=== PATIENT | male | born 1975 | race Caucasian/White ===

== ENCOUNTER 2017-02-22 07:23 | Inpatient (IN) | payer OTHER ==
[~2017-02-22] VITALS: Ht 182.9 cm; Wt 88.2 kg
[2017-02-22] VITALS (8 sets, daily range): BP systolic 102–131; BP diastolic 58–81
[2017-02-22] MEDS ORDERED: IV NORMAL SALINE 1000ML BAG 1,000 ML IV SCH (07:57)
[2017-02-22] MEDS ORDERED: fentaNYL PF VIAL 100 MCG/2 ML VIAL IV PRN (08:00)
[2017-02-22 08:27] LABS: CALCIUM 9.1 mg/dL (8.5-10.1); GFR 82.8; POTASSIUM 4.1 mmol/L (3.5-5.1)
[2017-02-22] MEDS ORDERED: IOHEXOL 300 MG/ML 75 ML VIAL IV ONE (08:30)
[2017-02-22] MEDS ORDERED: IOHEXOL 240 MG/ML 50ML VIAL. PO ONE (08:30)
[2017-02-22 08:36] LABS: BASO % 0 % (0-3); EOS % 2 % (0-3); HEMATOCRIT 43.4 % (39.0-53.0); HEMOGLOBIN 15.4 g/dL (13.0-17.5); LYMPH # 1.3 x10^3/uL (1.0-4.8); LYMPH % 12 % (24-48); MEAN CORPUSCULAR HEMOGLOBIN 33 pg (25-35); MEAN CORPUSCULAR HGB CONC 35 g/dL (31-37); MEAN CORPUSCULAR VOLUME 94 fL (79-100); MONO % 10 % (0-9); NEUT % 76 % (31-73); PLATELET COUNT 194 x10^3/uL (140-400); RED BLOOD COUNT 4.62 x10^6/uL (4.30-5.70); RED CELL DISTRIBUTION WIDTH 12.8 % (11.5-14.5); WHITE BLOOD COUNT 10.6 x10^3/uL (4.0-11.0)
[2017-02-22 08:36] LABS: BILIRUBIN,URINE NEGATIVE (NEG); GLUCOSE,URINE NEGATIVE (NEG); NITRITE,URINE NEGATIVE (NEG); PH,URINE 7.5; PROTEIN,URINE NEGATIVE (NEG-TRACE); UROBILINOGEN,URINE 0.2 mg/dL (0.2 mg/dL)
[2017-02-22 08:42] LABS: ALBUMIN 3.9 g/dL (3.4-5.0); ALBUMIN/GLOBULIN RATIO 1.2 (1.0-1.7); TOTAL PROTEIN 7.2 g/dL (6.4-8.2)
[2017-02-22 08:50] LABS: BACTERIA,URINE 0 /HPF (0-FEW); SQUAMOUS EPITHELIAL CELL,UR OCC /LPF; WBC,URINE 0 /HPF (0-4)
--- NOTE | 2017-02-22 10:00 | PHYS DOC ---
Past Medical History Past Medical History: No Pertinent History Past Surgical History: Other Additional Past Surgical Histo: dental Alcohol Use: Heavy Additional Information: pt. states approx 5 drinks daily Drug Use: None Adult General Chief Complaint Chief Complaint: ABDOMINAL PAIN HPI HPI Patient is a 42 year old male who presents complaining of right-sided abdominal pain which started last night at about 5 PM. The patient had taken his child to practice, he didn't feel well, had some more central abdominal pain and felt "dizzy, unbalanced". He went back to the vehicle and took a little nap, didn't really feel better. He continued to have abdominal pain which kept him up all night. He denies nausea or vomiting. said she thought he was nauseated but he said really it was more from dizziness. He had a bowel movement this morning which was normal and did not change the pain. The pain started around the umbilicus and is now more in the right lower quadrant but also somewhat in the left lower quadrant. He's never had this pain before. Denies history of abdominal surgery. The patient is in good health, no primary care physician, no medications. Review of Systems Review of Systems Constitutional: Denies fever or chills [] Eyes: Denies change in visual acuity, redness, or eye pain [] HENT: Denies nasal congestion or sore throat [] Respiratory: Denies cough or shortness of breath [] Cardiovascular: Denies chest pain GI: As in history of present illness : Denies dysuria or hematuria [] Musculoskeletal: Denies back pain or joint pain [] Integument: Denies rash or skin lesions [] Neurologic: Denies headache, focal weakness or sensory changes [] Current Medications Current Medications Current Medications Medications (Trade) Dose Ordered Sig/Watson Start Time Stop Time Status Last Admin Dose Admin Fentanyl Citrate 50 mcg 50 mcg PRN Q15MIN PRN 02/22/17 08:00 02/23/17 07:59 Iohexol (Omnipaque 240 Mg/ml) 30 ml 1X ONCE 02/22/17 08:30 02/22/17 08:31 DC 02/22/17 09:28 30 ML Iohexol (Omnipaque 300 Mg/ml) 75 ml 1X ONCE 02/22/17 08:30 02/22/17 08:31 DC 02/22/17 09:28 75 ML Sodium Chloride (Iv Sodium Chloride 0.9% 1000ml Bag) 1,000 ml @ 1,000 mls/hr Q1H 02/22/17 07:57 02/22/17 08:56 DC 02/22/17 08:21 1,000 MLS/HR Allergies Allergies Allergies Coded Allergies Type Severity Reaction Last Updated Verified No Known Drug Allergies 02/22/17 No Physical Exam Physical Exam Constitutional: Well developed, well nourished, no acute distress, non-toxic appearance. Alert, mentating normally, states it does hurt to move about on the cart but he does not seem to have difficulty doing that. HENT: Normocephalic, atraumatic, bilateral external ears normal, oropharynx moist, no oral exudates, nose normal. [] Eyes: conjunctiva normal, no discharge. [] Neck: Normal range of motion, no stridor. [] Cardiovascular:Heart rate regular rhythm, no murmur [] Lungs & Thorax: Bilateral breath sounds clear to auscultation [] Abdomen: Bowel sounds quiet. No bruit. Nondistended. Positive tenderness at McBurney's point with equivocal guarding. Some tenderness of the left lower quadrant, also left lower quadrant palpation elicits right lower quadrant pain. No upper abdominal tenderness. Skin: Warm, dry, no erythema, no rash. [] Extremities: No tenderness, no cyanosis, no clubbing, ROM intact, no edema. [] Neurologic: Alert and oriented X 3, normal motor function, normal sensory function, no focal deficits noted. [] Current Patient Data Vital Signs Vital Signs Date Time Temp Pulse Resp B/P Pulse Ox O2 Delivery O2 Flow Rate FiO2 02/22/17 07:35 98.7 76 16 131/78 98 Room Air 98.7 Lab Values Laboratory Tests Test 02/22/17 08:11 02/22/17 08:22 White Blood Count 10.6x10^3/uL (4.0-11.0) Red Blood Count 4.62x10^6/uL (4.30-5.70) Hemoglobin 15.4g/dL (13.0-17.5) Hematocrit 43.4% (39.0-53.0) Mean Corpuscular Volume 94fL (79-100) Mean Corpuscular Hemoglobin 33pg (25-35) Mean Corpuscular Hemoglobin Concent 35g/dL (31-37) Red Cell Distribution Width 12.8% (11.5-14.5) Platelet Count 194x10^3/uL (140-400) Neutrophils (%) (Auto) 76% (31-73) H Lymphocytes (%) (Auto) 12% (24-48) L Monocytes (%) (Auto) 10% (0-9) H Eosinophils (%) (Auto) 2% (0-3) Basophils (%) (Auto) 0% (0-3) Neutrophils # (Auto) 8.1x10^3uL (1.8-7.7) H Lymphocytes # (Auto) 1.3x10^3/uL (1.0-4.8) Monocytes # (Auto) 1.1x10^3/uL (0.0-1.1) Eosinophils # (Auto) 0.2x10^3/uL (0.0-0.7) Basophils # (Auto) 0.0x10^3/uL (0.0-0.2) Sodium Level 140mmol/L (136-145) Potassium Level 4.1mmol/L (3.5-5.1) Chloride Level 103mmol/L (98-107) Carbon Dioxide Level 29mmol/L (21-32) Anion Gap 8 (6-14) Blood Urea Nitrogen 13mg/dL (8-26) Creatinine 1.0mg/dL (0.7-1.3) Estimated GFR (Cockcroft-Gault) 82.8 BUN/Creatinine Ratio 13 (6-20) Glucose Level 106mg/dL (70-99) H Calcium Level 9.1mg/dL (8.5-10.1) Total Bilirubin 3.0mg/dL (0.2-1.0) H Aspartate Amino Transferase (AST) 21U/L (15-37) Alanine Aminotransferase (ALT) 47U/L (16-63) Alkaline Phosphatase 64U/L (46-116) Total Protein 7.2g/dL (6.4-8.2) Albumin 3.9g/dL (3.4-5.0) Albumin/Globulin Ratio 1.2 (1.0-1.7) Lipase 142U/L (73-393) Urine Collection Type Unknown Urine Color Yellow Urine Clarity Clear Urine pH 7.5 Urine Specific [place] 1.020 Urine Protein Negativemg/dL (NEG-TRACE) Urine Glucose (UA) Negativemg/dL (NEG) Urine Ketones (Stick) Negativemg/dL (NEG) Urine Blood Negative (NEG) Urine Nitrite Negative (NEG) Urine Bilirubin Negative (NEG) Urine Urobilinogen Dipstick 0.2mg/dL (0.2 mg/dL) Urine Leukocyte Esterase Negative (NEG) Urine RBC 1-2/HPF (0-2) Urine WBC 0/HPF (0-4) Urine Squamous Epithelial Cells Occ/LPF Urine Bacteria 0/HPF (0-FEW) Urine Mucus Slight/LPF Laboratory Tests 02/22/17 08:11 Laboratory Tests 02/22/17 08:11 EKG EKG [] Radiology/Procedures Radiology/Procedures CT scan of the abdomen and pelvis with oral and IV contrast read by the radiologist. Consistent with early appendicitis. No other findings noted to explain the symptoms. No abscess. [] Course & Med Decision Making Course & Med Decision Making Pertinent Labs and Imaging studies reviewed. (See chart for details) 42-year-old male in good general health presents with abdominal pain since 5 PM yesterday which has localized to the right lower quadrant, with a history and exam suspicious for appendicitis. CT scan is consistent with early appendicitis. Patient is stable. He was given a liter of IV fluids in the ED. I discussed the case with Dr. Samuel, on-call for general surgery, who also reviewed the CT scan. She will send somebody to see the patient and plans to admit him and take him to the operating room. She said they can give him antibiotics in the operating room. I discussed the plan with the patient and his who are agreeable. I wrote bridge orders. [] Dragon Disclaimer Dragon Disclaimer This electronic medical record was generated, in whole or in part, using a voice recognition dictation system. Departure Departure Impression: Primary Impression: Acute appendicitis Disposition: 09 ADMITTED INPATIENT Admitting Physician: Other Condition: STABLE Referrals: NO PCP (PCP) FIDE VERA MD Feb 22, 2017 10:00
--- NOTE | 2017-02-22 10:03 | RAD ---
Indication right lower quadrant abdominal pain. Axial images of the abdomen and pelvis were obtained. Both IV and oral contrast were administered. 75 cc of Omnipaque 300 was administered intravenously. No prior imaging is available. Preliminary results were discussed with Dr. Holliday just prior to dictating the report. The lung bases are clear. The liver and spleen appear unremarkable. The gallbladder appears grossly normal. Several splenule' s are noted in the left upper quadrant. The pancreas adrenal glands and kidneys appear unremarkable apart from occasional minute bilateral renal calculi.. The appendix is seen in the right lower quadrant. The appendix is slightly increased in diameter, approximately 7 mm. There is slight irregularity at the attachment of the appendix with the cecum. Findings, in the proper clinical setting, could reflect early appendicitis. Significant periappendiceal stranding is not seen. There is no evidence of abscess or rhina rupture. Occasional diverticula are noted associated with the large bowel. Active diverticulitis is not seen. IMPRESSION: Findings, as outlined above, could represent early appendicitis in the proper clinical setting. Clinical correlation advised. PQRS Compliance Statement: One or more of the following individualized dose reduction techniques were utilized for this examination: 1. Automated exposure control 2. Adjustment of the mA and/or kV according to patient size 3. Use of iterative reconstruction technique
--- NOTE | 2017-02-22 10:32 | PDOC1 ---
YUMI BARROW FISH FILLETER 02/22/17 1032: History and Physical Date of Admission Date of Admission DATE: 02/22/17 TIME: 10:28 Identification/Chief Complaint Chief Complaint abdominal pain Problems: Source Source: Chart review, Patient History of Present Illness History of Present Illness Acute onset abdominal discomfort yesterday. Pain was periumbilical, migrated to RLQ. Pain was been constant, no alleviating factors. No similar symptoms in past. No associated nausea or emesis. Past Medical History Past Medical History no pertinent hx Past Surgical History Past Surgical History: No pertinent history Family History Family History: Other (noncontributory to current illness ) Social History Smoke: No ALCOHOL: heavy (5 drinks daily, vodka) Drugs: None Current Problem List Problem List Problems Medical Problems: (1) Acute appendicitis Status: Acute Problems: Current Medications Current Medications Current Medications Fentanyl Citrate 50 mcg 50 mcg PRN Q15MIN PRN IV PAIN GREATER THAN 3/10; Start 02/22/17 at 08:00; Stop 02/23/17 at 07:59 Sodium Chloride (Iv Sodium Chloride 0.9% 1000ml Bag) 1,000 ml @ 1,000 mls/hr Q1H IV Last administered on 02/22/17 08:21; Start 02/22/17 at 07:57; Stop at 08:56; Status DC Iohexol (Omnipaque 240 Mg/ml) 30 ml 1X ONCE PO Last administered on 02/22/17 09:28; Start 02/22/17 at 08:30; Stop 02/22/17 at 08:31; Status DC Iohexol (Omnipaque 300 Mg/ml) 75 ml 1X ONCE IV Last administered on 02/22/17 09:28; Start 02/22/17 at 08:30; Stop 02/22/17 at 08:31; Status DC Allergies Allergies: Coded Allergies: No Known Drug Allergies (Unverified , 02/22/17) ROS General: No: Chills, Other (fevers) PSYCHOLOGICAL ROS: No: Anxiety, Depression Eyes: No Blurry vision, No Double vision HEENT: No: Heacaches, Hearing change Hematological and Lymphatic: No: Bleeding Problems, Blood Clots Respiratory: No: Cough, Shortness of breath Cardiovascular: yes Other (epigastric burning at times ), No Chest Pain, No Palpitations Gastrointestinal: Yes Other (see hpi) Genitourinary: No Dysuria, No Hematuria Musculoskeletal: Yes Joint Pain (back), No Joint Swelling Neurological: No Confusion, No Numbness/Tingling Skin: No Pruritus, No Rash Physical Exam General: Alert, Oriented X3, Cooperative, No acute distress HEENT: PERRLA Lungs: Clear to auscultation, Normal air movement Cardiovascular: S1, S2 Abdomen: Soft, Other (mild LLQ ttp, greater TTP to RLQ, no rebound or guarding ) Extremities: No clubbing, No cyanosis Skin: No rashes, No breakdown Neuro: Normal gait, Normal speech Psych/Mental Status: Mental status NL, Mood NL Vitals Vitals Vital Signs Date Time Temp Pulse Resp B/P Pulse Ox O2 Delivery O2 Flow Rate FiO2 02/22/17 10:14 59 16 131/83 100 Room Air 02/22/17 07:35 98.7 98.7 Labs Labs Laboratory Tests Test 02/22/17 08:11 02/22/17 08:22 White Blood Count 10.6x10^3/uL (4.0-11.0) Red Blood Count 4.62x10^6/uL (4.30-5.70) Hemoglobin 15.4g/dL (13.0-17.5) Hematocrit 43.4% (39.0-53.0) Mean Corpuscular Volume 94fL (79-100) Mean Corpuscular Hemoglobin 33pg (25-35) Mean Corpuscular Hemoglobin Concent 35g/dL (31-37) Red Cell Distribution Width 12.8% (11.5-14.5) Platelet Count 194x10^3/uL (140-400) Neutrophils (%) (Auto) 76% (31-73) Lymphocytes (%) (Auto) 12% (24-48) Monocytes (%) (Auto) 10% (0-9) Eosinophils (%) (Auto) 2% (0-3) Basophils (%) (Auto) 0% (0-3) Neutrophils # (Auto) 8.1x10^3uL (1.8-7.7) Lymphocytes # (Auto) 1.3x10^3/uL (1.0-4.8) Monocytes # (Auto) 1.1x10^3/uL (0.0-1.1) Eosinophils # (Auto) 0.2x10^3/uL (0.0-0.7) Basophils # (Auto) 0.0x10^3/uL (0.0-0.2) Sodium Level 140mmol/L (136-145) Potassium Level 4.1mmol/L (3.5-5.1) Chloride Level 103mmol/L (98-107) Carbon Dioxide Level 29mmol/L (21-32) Anion Gap 8 (6-14) Blood Urea Nitrogen 13mg/dL (8-26) Creatinine 1.0mg/dL (0.7-1.3) Estimated GFR (Cockcroft-Gault) 82.8 BUN/Creatinine Ratio 13 (6-20) Glucose Level 106mg/dL (70-99) Calcium Level 9.1mg/dL (8.5-10.1) Total Bilirubin 3.0mg/dL (0.2-1.0) Aspartate Amino Transf (AST/SGOT) 21U/L (15-37) Alanine Aminotransferase (ALT/SGPT) 47U/L (16-63) Alkaline Phosphatase 64U/L (46-116) Total Protein 7.2g/dL (6.4-8.2) Albumin 3.9g/dL (3.4-5.0) Albumin/Globulin Ratio 1.2 (1.0-1.7) Lipase 142U/L (73-393) Urine Collection Type Unknown Urine Color Yellow Urine Clarity Clear Urine pH 7.5 Urine Specific [place] 1.020 Urine Protein Negativemg/dL (NEG-TRACE) Urine Glucose (UA) Negativemg/dL (NEG) Urine Ketones (Stick) Negativemg/dL (NEG) Urine Blood Negative (NEG) Urine Nitrite Negative (NEG) Urine Bilirubin Negative (NEG) Urine Urobilinogen Dipstick 0.2mg/dL (0.2 mg/dL) Urine Leukocyte Esterase Negative (NEG) Urine RBC 1-2/HPF (0-2) Urine WBC 0/HPF (0-4) Urine Squamous Epithelial Cells Occ/LPF Urine Bacteria 0/HPF (0-FEW) Urine Mucus Slight/LPF Laboratory Tests Test 02/22/17 08:11 02/22/17 08:22 White Blood Count 10.6x10^3/uL (4.0-11.0) Red Blood Count 4.62x10^6/uL (4.30-5.70) Hemoglobin 15.4g/dL (13.0-17.5) Hematocrit 43.4% (39.0-53.0) Mean Corpuscular Volume 94fL (79-100) Mean Corpuscular Hemoglobin 33pg (25-35) Mean Corpuscular Hemoglobin Concent 35g/dL (31-37) Red Cell Distribution Width 12.8% (11.5-14.5) Platelet Count 194x10^3/uL (140-400) Neutrophils (%) (Auto) 76% (31-73) Lymphocytes (%) (Auto) 12% (24-48) Monocytes (%) (Auto) 10% (0-9) Eosinophils (%) (Auto) 2% (0-3) Basophils (%) (Auto) 0% (0-3) Neutrophils # (Auto) 8.1x10^3uL (1.8-7.7) Lymphocytes # (Auto) 1.3x10^3/uL (1.0-4.8) Monocytes # (Auto) 1.1x10^3/uL (0.0-1.1) Eosinophils # (Auto) 0.2x10^3/uL (0.0-0.7) Basophils # (Auto) 0.0x10^3/uL (0.0-0.2) Sodium Level 140mmol/L (136-145) Potassium Level 4.1mmol/L (3.5-5.1) Chloride Level 103mmol/L (98-107) Carbon Dioxide Level 29mmol/L (21-32) Anion Gap 8 (6-14) Blood Urea Nitrogen 13mg/dL (8-26) Creatinine 1.0mg/dL (0.7-1.3) Estimated GFR (Cockcroft-Gault) 82.8 BUN/Creatinine Ratio 13 (6-20) Glucose Level 106mg/dL (70-99) Calcium Level 9.1mg/dL (8.5-10.1) Total Bilirubin 3.0mg/dL (0.2-1.0) Aspartate Amino Transf (AST/SGOT) 21U/L (15-37) Alanine Aminotransferase (ALT/SGPT) 47U/L (16-63) Alkaline Phosphatase 64U/L (46-116) Total Protein 7.2g/dL (6.4-8.2) Albumin 3.9g/dL (3.4-5.0) Albumin/Globulin Ratio 1.2 (1.0-1.7) Lipase 142U/L (73-393) Urine Collection Type Unknown Urine Color Yellow Urine Clarity Clear Urine pH 7.5 Urine Specific Malone 1.020 Urine Protein Negativemg/dL (NEG-TRACE) Urine Glucose (UA) Negativemg/dL (NEG) Urine Ketones (Stick) Negativemg/dL (NEG) Urine Blood Negative (NEG) Urine Nitrite Negative (NEG) Urine Bilirubin Negative (NEG) Urine Urobilinogen Dipstick 0.2mg/dL (0.2 mg/dL) Urine Leukocyte Esterase Negative (NEG) Urine RBC 1-2/HPF (0-2) Urine WBC 0/HPF (0-4) Urine Squamous Epithelial Cells Occ/LPF Urine Bacteria 0/HPF (0-FEW) Urine Mucus Slight/LPF Images Images CT reviewed VTE Prophylaxis Ordered VTE Prophylaxis Devices: Yes VTE Pharmacological Prophylaxi: Contraindicated Assessment/Plan Assessment/Plan Acute early appendicitis alcohol abuse plan lap appy today PARVIN CATES MD 02/22/17 1348: History and Physical Allergies Allergies: Coded Allergies: No Known Drug Allergies (Unverified , 02/22/17) VTE Prophylaxis Ordered VTE Prophylaxis Devices: Yes VTE Pharmacological Prophylaxi: No Assessment/Plan Assessment/Plan addendum i saw and examined him. i repeated phillips parts of his h and p. yest began having periumb pain, then it migrated to include his RLQ. pain is sharp, constant, not improving, worse with movement. no one else he knows has been sick recently with gi sx. sh: drinks 5 drinks per day FH alcoholism afeb vss does not appear toxic abd soft nd focally tender in RLQ with rebound. ct reviewed labs reviewed acute appendicitis. to or for lap appy, poss open. risks of bleeding, infection, finding normal appendix/other pathology requiring treatment, injury to intra-abd structures, need to convert to open, symptoms of etoh withdrawal were d/w him. questions answered and he desires to proceed. chronic, daily etoh use. he is interested in d/w social work local resources to help him stop drinking. he would also like to establish a pcp. will place sw consult to help him with both of these needs. YUMI BARROW FISH FILLETER Feb 22, 2017 10:32 PARVIN CATES MD Feb 22, 2017 13:48
--- NOTE | 2017-02-22 10:50 | ACF ---
Admit Criteria Forms Admit Criteria Forms Admit Criteria Forms ABDOMINAL PAIN Clinical Indications for Admission to Inpatient Care (Place 'X' for any and all applicable criteria): Admission is indicated for ANY ONE of the following(1)(2)(3)(4)(5): [X]I. Inpatient admission required rather than observation care (Also use Abdominal Pain: Observation Care, as appropriate) because of ANY ONE of the following: [ ]a) Severe pain requiring acute inpatient management [X]b) Identification of etiology/finding that requires inpatient care (eg, aortic dissection, free air) [ ]c) Absent bowel sounds with complete ileus(6) [ ]d) Suspected toxic megacolon [ ]e) Severe electrolyte abnormalities requiring inpatient care [ ]f) High fever or infection requiring inpatient admission as indicated by ANY ONE of following(7)(8): [ ] i) Appropriate outpatient or observational care antimicrobial treatment unavailable, not effective, or not feasible [ ] ii) Documented bacteremia [ ] iii) Temperature > 104.9 degrees F (oral) [ ] iv) T >103.1 F (oral) or < 96.8 F(rectal) that does not respond to all emergency treatment measures [ ]g) Signs of intestinal obstruction [B] [ ]h) Hemodynamic instability [ ]i) IV fluid to replace significant ongoing losses (greater than 3 L/m2 per day) (12)(13) [ ]j) Percutaneous or open drainage (eg, abscess, biliary tract ) procedures [ ]k) Parenteral nutrition regimen that must be implemented on inpatient basis [ ]l) Other condition,treatment or monitoring requiring inpatient admission. [ ]II. Peritoneal signs present [ ]III. Surgery needed that cannot be performed on an ambulatory basis. [ ]IV. Evaluation requires patient to not eat or drink for extended period ( eg, more than 24 hours). [ ]V. Contraindications and/or Inappropriate clinical situations for Observational Care in patients with abdominal pain, when ANY ONE of the following is required: [ ]a) Thorough evaluation is required to prevent catastrophic events due to delays in diagnosing (e.g.Mesenteric ischemia) 1,3 [ ]b) Patient with severe pathology or with chronic symptoms unlikely to improve in the ED stay (3) [ ]. General contraindications and/or Inappropriate clinical situations for Observational Care in patients with abdominal pain, when ANY ONE of the following is required: [ ]a) Prediction of prolongation of LOS based on ANY ONE of the following may be considered as a contraindication for observational care 2, 3, 4, 5, 6, 7, 8, 9, 10, 11 [ ]i) Age > 65 yrs. [ ]ii) Patient arriving by ambulance [ ]iii) Patient with high acuity [ ]iv) Patient requiring vital sign monitoring [ ]v) Patient on IV medication [ ]b) Systolic blood pressures 180mmHg 3,12 [ ]c) Patient with altered mental status including delirium and other alteration of consciousness, (3) [ ]d) Patient whose discharge disposition will be to a penitentiary home or rehabilitation home should not be managed in Emergency Department Observation Unit. CMS rule requires 3 days hospital stay before such placement.3,13 [ ]e) Patient with failure to thrive due to broad array of etiologies 3,16,17 [ ]f) Inability to ambulate 3,14 Extended stay beyond goal length of stay may be needed for(2)(3): [ ]a) Persistent abdominal pain with suspected intra-abdominal process [ ]b) Diagnosed condition requiring continued stay (e.g., pancreatitis, complicated diverticulitis) [ ]c) Surgery (e.g., colectomy) The original [employer] content created by [employer] has been revised. The portions of the content which have been revised are identified through the use of italic text or in bold, and [email or web address] has neither reviewed nor approved the modified material.All other unmodified content is copyright [employer]. Please see references footnoted in the original [employer] edition 2016 HUBER NICHOLSON Feb 22, 2017 10:50
[2017-02-22] MEDS ORDERED: SURGICEL HEMOSTAT 4X8 EACH. ONE (13:41)
[2017-02-22] MEDS ORDERED: BUPIVACAINE-EPI 0.5%-1:200000 50 ML VIAL. ONE (13:41)
[2017-02-22] MEDS ORDERED: DESFLURANE 61 TO 120 MINUTES IH ONE (13:43)
[2017-02-22] MEDS ORDERED: fentaNYL PF VIAL 100 MCG/2 ML VIAL ONE ×2 (13:44→14:39)
[2017-02-22] MEDS ORDERED: MIDAZOLAM HCL/PF 2 MG/2 ML VIAL. ONE (13:44)
[2017-02-22] MEDS ORDERED: NEOSTIGMINE METHYLSULFATE 5 MG/5 ML SYRINGE. ONE (13:45)
[2017-02-22] MEDS ORDERED: ROCURONIUM 50 MG/5 ML VIAL. ONE (13:45)
[2017-02-22] MEDS ORDERED: GLYCOPYRROLATE 1 MG/5 ML VIAL. ONE (13:45)
[2017-02-22] MEDS ORDERED: PROPOFOL 20 ML IV ONE (13:45)
[2017-02-22] MEDS ORDERED: SUCCINYLCHOLINE 200 MG/10 ML VIAL. ONE (13:45)
[2017-02-22] MEDS ORDERED: KETOROLAC 30 MG/ML INJ FOR OR. INJ ONE (13:46)
[2017-02-22] MEDS ORDERED: DEXAMETHASONE SOD PHOS 20 MG/5 ML VIAL. ONE (13:46)
[2017-02-22] MEDS ORDERED: ONDANSETRON PF 4 MG/2 ML VIAL. ONE (13:46)
[2017-02-22] MEDS ORDERED: LIDOCAINE 2% 100 MG/5 ML SYRINGE. ONE (13:46)
[2017-02-22] MEDS ORDERED: cefOXitin 2GM IVPB FOR OMNI 0 ML IV ONE (14:10)
[2017-02-22] MEDS ORDERED: IV RINGERS,LACTATED 1000ML 1,000 ML IV ONE (14:15)
--- NOTE | 2017-02-22 15:11 | PDOC ---
BRIEF OPERATIVE NOTE Pre-Op Diagnosis appendicitis lap appy adamaris cates ebl 10 ivf 1000 faby well to rr stable. #[id number] PARVIN CATES MD Feb 22, 2017 15:11
[2017-02-22] MEDS ORDERED: METOCLOPRAMIDE HCL 10 MG/2 ML VIAL. IV PRN (15:15)
[2017-02-22] MEDS ORDERED: ONDANSETRON PF 4 MG/2 ML VIAL. IV PRN (15:15)
[2017-02-22] MEDS ORDERED: HYDROmorphone 2 MG/ML VIAL IVP PRN (15:15)
[2017-02-22] MEDS: IV NORMAL SALINE 1000ML BAG 1,000 ML IV SCH (18:55)
[2017-02-22] MEDS: oxyCODONE/APAP 5/325 1 TAB TABLET PO PRN ×2 (18:55→23:22)
--- NOTE | 2017-02-22 19:41 | OP ---
DATE OF SURGERY: 02/22/2017 PREOPERATIVE DIAGNOSIS: Acute appendicitis. POSTOPERATIVE DIAGNOSIS: Acute appendicitis. PROCEDURE: Laparoscopic appendectomy. SURGEON: Parvin Cates M.D. ANESTHESIA: General. ESTIMATED BLOOD LOSS: 10 mL. IV FLUIDS: 1000 mL. INDICATIONS: The patient is a 43-year-old male who presents with acute appendicitis. FINDINGS: He had nonperforated and undiagnosed appendicitis. DESCRIPTION OF PROCEDURE: After informed consent was obtained, the patient was taken to the operating room and placed in supine position. After adequate induction of general anesthesia, he was prepped and draped in usual sterile fashion. After prepping and draping in the usual sterile fashion, an infraumbilical skin incision was made with a scalpel, subcutaneous tissues with a hemostat. [facility] was used to grab the fascia and lift it anteriorly. Veress was used to gain access to the peritoneal cavity. Low opening pressures confirmed intraperitoneal placement of Veress. Pneumoperitoneum to 15 mmHg was established followed by placement of 5 mm port. A 5 mm 30 degree lens revealed good port placement. No evidence of entry trauma. He was placed head down and rotated towards his left. Two additional ports were placed under direct vision. One was a 5 mm suprapubic port and one was left lower quadrant 12 mm port. The sites were injected with local anesthetic and then the ports were placed under direct laparoscopic vision. The appendix was visible in the right lower quadrant and it was mildly inflamed. A window was made at the base of appendix with a [place] dissector. Laparoscopic ENRIQUETA blue load stapler was used to divide the base of the appendix. Laparoscopic ENRIQUETA white load stapler was used to divide the mesoappendix. The appendix was placed in laparoscopic bag and brought out to the left lower quadrant incision. The right lower quadrant was irrigated. Irrigant returned clear. The staple lines were inspected. They were healthy and hemostatic. Pelvis and right upper quadrant irrigated and the irrigant suctioned until the right lower quadrant and pelvis were clean and dry. The fascial closure device was used to close the fascia and the left lower quadrant incision using 0 Vicryl suture. The ports were removed under direct vision. They were hemostatic. Before removing the ports one final look at the right lower quadrant revealed it to continue to be hemostatic. Ports removed under direct vision. They were hemostatic. Pneumoperitoneum was desufflated. Skin incisions were closed with 4-0 Monocryl in subcuticular fashion. Sterile dressings were placed. He tolerated the procedure well. There were no apparent complications. He was then transferred in stable condition to the recovery room. PARVIN CATES MD DR: RICO/mayte JOB#: [id number] / [id number]
[2017-02-23 02:56] VITALS: BP 101/65
[2017-02-23] MEDS: IV NORMAL SALINE 1000ML BAG 1,000 ML IV SCH (03:34)
[2017-02-23] MEDS: oxyCODONE/APAP 5/325 1 TAB TABLET PO PRN ×2 (06:29→12:14)
[2017-02-23 07:00] VITALS: BP 104/71
--- NOTE | 2017-02-23 09:39 | PDOC ---
YUMI BARROW FLAKER TENDER 02/23/17 0939: SURGICAL PROGRESS NOTE Subjective Tolerating diet incisional pain, mainly to LLQ incision urinating no n/v Vital Signs Vital Signs Date Time Temp Pulse Resp B/P Pulse Ox O2 Delivery O2 Flow Rate FiO2 02/23/17 06:29 94 Room Air 10.0 02/23/17 02:56 97.0 52 16 101/65 97.0 I&O Intake and Output 02/23/17 07:00 Intake Total 2900 ml Output Total 235 ml Balance 2665 ml Intake Oral 300 ml IV Total 2600 ml Output Urine Total 225 ml Estimated Blood Loss 10 ml # Voids 2 General: Alert, Oriented X3, Cooperative, No acute distress Abdomen: Soft, Other (lap dressings dry, incisional TTP) Labs Laboratory Tests Test 02/22/17 08:11 02/22/17 08:22 White Blood Count 10.6x10^3/uL (4.0-11.0) Red Blood Count 4.62x10^6/uL (4.30-5.70) Hemoglobin 15.4g/dL (13.0-17.5) Hematocrit 43.4% (39.0-53.0) Mean Corpuscular Volume 94fL (79-100) Mean Corpuscular Hemoglobin 33pg (25-35) Mean Corpuscular Hemoglobin Concent 35g/dL (31-37) Red Cell Distribution Width 12.8% (11.5-14.5) Platelet Count 194x10^3/uL (140-400) Neutrophils (%) (Auto) 76% (31-73) Lymphocytes (%) (Auto) 12% (24-48) Monocytes (%) (Auto) 10% (0-9) Eosinophils (%) (Auto) 2% (0-3) Basophils (%) (Auto) 0% (0-3) Neutrophils # (Auto) 8.1x10^3uL (1.8-7.7) Lymphocytes # (Auto) 1.3x10^3/uL (1.0-4.8) Monocytes # (Auto) 1.1x10^3/uL (0.0-1.1) Eosinophils # (Auto) 0.2x10^3/uL (0.0-0.7) Basophils # (Auto) 0.0x10^3/uL (0.0-0.2) Sodium Level 140mmol/L (136-145) Potassium Level 4.1mmol/L (3.5-5.1) Chloride Level 103mmol/L (98-107) Carbon Dioxide Level 29mmol/L (21-32) Anion Gap 8 (6-14) Blood Urea Nitrogen 13mg/dL (8-26) Creatinine 1.0mg/dL (0.7-1.3) Estimated GFR (Cockcroft-Gault) 82.8 BUN/Creatinine Ratio 13 (6-20) Glucose Level 106mg/dL (70-99) Calcium Level 9.1mg/dL (8.5-10.1) Total Bilirubin 3.0mg/dL (0.2-1.0) Aspartate Amino Transf (AST/SGOT) 21U/L (15-37) Alanine Aminotransferase (ALT/SGPT) 47U/L (16-63) Alkaline Phosphatase 64U/L (46-116) Total Protein 7.2g/dL (6.4-8.2) Albumin 3.9g/dL (3.4-5.0) Albumin/Globulin Ratio 1.2 (1.0-1.7) Lipase 142U/L (73-393) Urine Collection Type Unknown Urine Color Yellow Urine Clarity Clear Urine pH 7.5 Urine Specific Crowell 1.020 Urine Protein Negativemg/dL (NEG-TRACE) Urine Glucose (UA) Negativemg/dL (NEG) Urine Ketones (Stick) Negativemg/dL (NEG) Urine Blood Negative (NEG) Urine Nitrite Negative (NEG) Urine Bilirubin Negative (NEG) Urine Urobilinogen Dipstick 0.2mg/dL (0.2 mg/dL) Urine Leukocyte Esterase Negative (NEG) Urine RBC 1-2/HPF (0-2) Urine WBC 0/HPF (0-4) Urine Squamous Epithelial Cells Occ/LPF Urine Bacteria 0/HPF (0-FEW) Urine Mucus Slight/LPF Problem List Problems Medical Problems: (1) Acute appendicitis Status: Acute Assessment/Plan s/p lap vlady grecia home, after sw sees pt to discuss pcp, ETOH treatment FU 2 weeks Problems: PARVIN CATES MD 02/23/17 1253: SURGICAL PROGRESS NOTE Assessment/Plan addendum i saw and examined him. he is feeling well and wants to go home. was able to d /w SW etoh use and resources. he has a list of community resources and a list of [facility] primary care providers. agree with dc home. Problems: YUMI BARROW FLAKER TENDER Feb 23, 2017 09:39 PARVIN CATES MD Feb 23, 2017 12:53
[2017-02-23] MEDS ORDERED: OXYC1TAB7 PO (09:40)
[2017-02-23 11:00] VITALS: BP 110/65
--- NOTE | 2017-02-24 10:17 | PDOC3 ---
Discharge Summary* Date of Admission: Feb 22, 2017 Date of Discharge: Feb 23, 2017 Admitting Diagnosis Problems Medical Problems: (1) Acute appendicitis Status: Acute Final Diagnosis Problems Medical Problems: (1) Acute appendicitis Status: Acute CONSULTS Social Work Procedures Laparoscopic appendectomy Brief Hospital Course Mr. Schulz is a 42 old male who presented with right lower quadrant pain and findings of appendicitis. Underwent laparoscopic appendectomy. Postoperatively tolerating diet, pain managed, ambulating, and urinating well. He discharged home, social work met with him and discussed options for alcohol abuse treatment. Disposition/Orders: D/C to Home CONDITION AT DISCHARGE: Stable Diet: Regular Scheduled PRN Oxycodone Hcl/Acetaminophen (Oxycodone-Acetaminophen 5-325) 2 TAB PO PRN Q4HRS PRN PRN PAIN FOLLOW UP APPOINTMENT: 2 weeks Time Spent Total time spent with patient [] minutes for coordination of care, counseling, and education. YUMI BARROW TRAFFIC MONITOR SPECIALIST Feb 24, 2017 10:17
--- NOTE | 2017-02-27 10:54 | PATHOLOGY ---
PATHOLOGY REPORT * * * * * * * * FINAL DIAGNOSIS: Appendix, laparoscopic appendectomy: - Acute appendicitis. 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 COMMENT: Sections of the appendix show an acute appendicitis. There appears to be a small incidental tumor within the submucosa of the distal appendiceal tip. The tumor cells have a nested and focal tubular arrangement. The tumor cells have moderate amounts of pale eosinophilic to focally vacuolated cytoplasm, and possess rounded to ovoid uniform appearing nuclei having a finely granular chromatin and inconspicuous nucleoli. A limited panel of immunoperoxidase stains is obtained and yields the following results: Synaptophysin and chromogranin: positive in the tumor cells Cytokeratin 7 and cytokeratin 20: negative in the tumor cells. (KESHAVM::ARABELLA:ivana; d/t: 02/24-) REPORT ELECTRONICALLY SIGNED BY: Tabby Rey M.D. DATE/TIME: 02/27/2017 10:53 * * * * * * * * GROSS PATHOLOGY: Received in formalin labeled "Tripp Mendez, appendix," is an appendix measuring 5.7 cm in length and up to 0.8 cm in diameter with a large amount of attached mesoappendix. The serosal surface is pink-davis and slightly shaggy in appearance. Sectioning reveals a pinpoint to slightly patent lumen filled with blood coagulum. Cafeteria Assistant sections are submitted in cassette A1. (CAA; 02/23/2017) INITIAL CPT CODE(S): A; 73093, 48701, 41598, 29499, 19408 Professional services performed by [email or web address] [address] Technical services performed by [email or web address] at [address] [place] [address], [facility] [address] [address]. SPECIMEN(S) RECEIVED: A.Appendix CLINICAL HISTORY: Acute appendicitis PATIENT: TRIPP MENDEZ /AGE: 301/12/1975 (Age: 42) PATIENT #: [id number] ALT CASE #: SPECIMEN COLLECTION DATE: 02/22/2017 SPECIMEN RECEIVED DATE: 02/23/2017 [facility] - [id number] [place] [address] - PHONE: [phone] * * * END OF REPORT * * *
== END 2017-02-23 13:00 | disposition home or self-care (01) | DRG 343 ==
LOC: ER 07:23 → 5 NORTH 10:00
PROVIDERS: ADMIT Surgery; ATTEND Surgery
PROC: 0DTJ4ZZ Resection of Appendix, Percutaneous Endoscopic Approach (ICD-10-PCS; principal; 2017-02-22 14:30)
DX: K35.80 Unspecified acute appendicitis (principal); F10.20 Alcohol dependence, uncomplicated; K66.8 Other specified disorders of peritoneum
CPT/HCPCS: 36415; 74177; 80053; 81001; 83690; 85027; 88304; 88341; 88342; 96360; 96361; C1782; J0330; J0694; J1100; J1885; J2250; J2405; J2704; J2710; J3010; J3490; J7030; J7120; Q9966; Q9967; 99285-25; G0641

== ENCOUNTER → 2017-04-14 | Outpatient (CLI) | payer BC, OTHER ==
[~2017-04-14] MED LIST: IOHEXOL 300 MG/ML 75 ML VIAL IV ONE; OXYC1TAB7 PO
--- NOTE | 2017-04-14 10:26 | RAD ---
Indication appendiceal carcinoma. Staging. Axial images through the chest were obtained. No prior imaging of the chest is available. Note is made of a previous CT examination of the abdomen and pelvis 02/22/2017. Approximately 75 cc of Omnipaque 300 was administered intravenously. Imaging through the upper abdomen is unremarkable. The thoracic aorta appears unremarkable. There is no significant hilar or mediastinal adenopathy. A densely calcified granuloma is noted in the right lower lobe. A dominant soft tissue mass in either lung is not seen. No acute finding is seen in the chest. There is no evidence of metastatic disease. IMPRESSION: No acute or significant finding seen in the chest. No evidence of metastatic disease PQRS Compliance Statement: One or more of the following individualized dose reduction techniques were utilized for this examination: 1. Automated exposure control 2. Adjustment of the mA and/or kV according to patient size 3. Use of iterative reconstruction technique
== END | disposition home or self-care (01) ==
LOC: CT 07:32
PROVIDERS: ATTEND Internal Medicine Hematology & Oncology
DX: D3A.020 Benign carcinoid tumor of the appendix (principal)
CPT/HCPCS: 71260; Q9967